=== PATIENT | female | born 1955 | race Hispanic/Latino ===

== ENCOUNTER 2019-01-14 13:13 | Inpatient (IN) | payer MEDICARE ==
[2019-01-14 13:43] LABS: #Eosinphils 0.1 thou/uL (0.0-0.7); #Lymphocytes 1.9 thou/uL (1.20-3.40); #Monocytes 0.4 thou/uL (0.11-0.59); #Neutrophils 4.4 thou/uL (1.40-6.50); %Basophils 0.6 % (0.0-1.0); %Eosinophils 2.1 % (0.0-10.0); %Lymphocytes 27.9 % (21.0-51.0); %Neutrophils 63.3 % (42.0-75.0); Hemoglobin 12.4 g/dL (12.0-16.0); Mean Corpuscular HGB CONC 31.6 g/dL (32.0-36.0); Mean Corpuscular Hemoglobin 30.5 pg (27.0-31.0); Mean Corpuscular Volume 96.4 fL (78.0-98.0); Mean Platelet Volume 9.5 fL (7.4-10.4); Platelet Count 120 thou/uL (130-400); RBC Distribution Width 12.6 % (11.5-14.5); Red Blood Cell (RBC) Count 4.08 mill/uL (4.20-5.40); White Blood Cell (WBC) Count 6.9 thou/uL (4.8-10.8)
[2019-01-14 14:01] LABS: ALT (SGPT) 89 U/L (8-55); AST (SGOT) 65 U/L (5-34); Acetaminophen Less than 6.0 mcg/mL (10.0-30.0); Albumin 3.8 g/dL (3.4-4.8); Alcohol Less than 10 mg/dL (Less than 10); Alkaline Phosphatase 68 U/L (40-150); Anion Gap 13 mmol/L (10-20); BUN (Urea Nitrogen) 17 mg/dL (9.8-20.1); Bilirubin, Total 0.6 mg/dL (0.2-1.2); Calc. Creatinine Clearance 0 mL/min (70-130); Calcium 9.2 mg/dL (7.8-10.44); Carbon Dioxide 26 mmol/L (23-31); Chloride 106 mmol/L (98-107); Estimated GFR-MDRD 81; Glucose 135 mg/dL (80-115); Potassium 3.5 mmol/L (3.5-5.1); Protein, Total 6.8 g/dL (6.0-8.3); Salicylate Less than 8.0 mg/dL (15.0-30.0); Sodium 141 mmol/L (136-145)
[2019-01-14 18:42] LABS: Bilirubin Small (Negative); Blood, Urine Negative (Negative); Clarity CLEAR (Clear); Glucose, Urine (Dipstick) Negative (Negative); Leukocyte Negative (Negative); Nitrite Negative (Negative); Protein, Urine (Dipstick) Trace mg/dL (Neg-Trace); Specific Gravity, Urine 1.029 (1.002-1.036); Urobilinogen 0.2 mg/dL (0.2-1.0); pH, Urine 5.5 (5.0-9.0)
[2019-01-14 18:55] LABS: Amphetamine Not Detected (NotDetected); Barbiturates Screen Not Detected (NotDetected); Benzodiazepine Screen Not Detected (NotDetected); Cocaine Metabolite Screen Not Detected (NotDetected); Medtox Control Line Valid? VALID (VALID); Medtox Reader # READER 1; Methadone Not Detected (NotDetected); Methamphetamine Not Detected (NotDetected); Opiate Screen Not Detected (NotDetected); Oxycodone Screen Not Detected (NotDetected); Phencyclidine (PCP) Not Detected (NotDetected); THC/Cannabinoid Screen Not Detected (NotDetected); Tricyclic Screen Detected (NotDetected)
[2019-01-15 00:07] LABS: Anion Gap 11 mmol/L (10-20); BUN (Urea Nitrogen) 14 mg/dL (9.8-20.1); Calc. Creatinine Clearance 0 mL/min (70-130); Calcium 8.5 mg/dL (7.8-10.44); Carbon Dioxide 25 mmol/L (23-31); Chloride 109 mmol/L (98-107); Estimated GFR-MDRD 85; Glucose 153 mg/dL (80-115); Magnesium 1.9 mg/dL (1.6-2.6); Phosphorus 4.4 mg/dL (2.3-4.7); Potassium 3.5 mmol/L (3.5-5.1); Sodium 141 mmol/L (136-145)
[2019-01-15 00:12] LABS: Troponin I 0.034 ng/mL (< 0.028)
[2019-01-15] MEDS ORDERED: Rocuronium Bromide 10 MG/ML (10ML VIAL) ONE (00:53)
[2019-01-15 01:49] LABS: Analyzer IN Cardio ER; Base Excess (BEa) 0.4 mEq/L (-2.0 to +3.0); CO2 Tension 45.8 mmHg (35.0-45.0); Calcium, Ionized 1.13 mmol/L (1.12-1.30); Carboxyhemoglobin (COHb) 0.6 gm% (0.0-3.0); Hemoglobin (Hb) 12.4 g/dL (12.0-16.0); Potassium - ABG Lab 3.47 mmol/L (3.70-5.30); pH, Arterial 7.37 (7.35-7.45)
[2019-01-15 02:59] VITALS: BMI 44.1
[2019-01-15] MEDS ORDERED: Acetaminophen 650 MG Suppository PR PRN (03:32)
[2019-01-15] MEDS ORDERED: Senokot S 8.6-50 MG TAB PO PRN (03:32)
[2019-01-15] MEDS ORDERED: Ondansetron ODT 4 MG TAB PO PRN (03:32)
[2019-01-15] MEDS ORDERED: Acetaminophen 325 MG TAB PO PRN (03:32)
[2019-01-15] MEDS ORDERED: Ondansetron PF 4 MG/2 ML Vial IVP PRN (03:32)
[2019-01-15] MEDS ORDERED: Dextrose 5% in Water 1,000 ML IV PRN (03:35)
[2019-01-15] MEDS ORDERED: Insulin Regular 300 UNITS/3 ML VIAL SC PRN ×2 (03:35)
[2019-01-15] MEDS ORDERED: Dextrose 50% Abboject 50 ML SYRINGE SLOW IVP PRN (03:35)
[2019-01-15] MEDS ORDERED: SYSTANE 3.5 GM TUBE EA EYE PRN (03:36)
[2019-01-15] MEDS ORDERED: Ventilator Sedation Protocol 1 EACH FS SCH (03:45)
[2019-01-15] MEDS ORDERED: Morphine 2 MG/ML SYRINGE SLOW IVP PRN (03:46)
[2019-01-15] MEDS ORDERED: fentaNYL Citrate/PF 2,000 MCG in Sodium Chloride 0.9% 60 ML IV SCH (03:46)
[2019-01-15] MEDS ORDERED: Propofol BOLUS 1,000 MG/100 ML VIAL IV PRN (03:46)
[2019-01-15] MEDS ORDERED: Propofol 1,000 MG/100 ML VIAL IV PRN (03:46)
[2019-01-15] MEDS ORDERED: Lorazepam 2 MG/ML VIAL SLOW IVP PRN (03:46)
[2019-01-15] MEDS ORDERED: DISCONTINUE PREVIOUS NARCOTIC PAIN MEDICATIONS AND BENZODIAZEPINES FS SCH (03:46)
[2019-01-15] MEDS ORDERED: Fentanyl BOLUS 250 ML IVPB PRN (03:46)
--- NOTE | 2019-01-15 04:42 | HP ---
PRIMARY CARE PHYSICIAN: [facility]. CHIEF COMPLAINT: Drug overdose. HISTORY OF PRESENT ILLNESS: The patient is a 63-year-old female with bipolar disorder, was brought into the emergency room after a drug overdose. The patient apparently took 20 tablets of Seroquel intentionally in a suicidal attempt. Please note that the patient's history was obtained from the ER report. The patient is intubated at this time. The family reported to the emergency room that the patient took 20 tablets of unknown mg of Seroquel this afternoon. The patient was alone at that time. The family were at the [employer] game. The patient called the family after the overdose. The patient has a diagnosis of bipolar disorder. She has been hallucinating recently. In the emergency room, initial vital signs showed temperature 98.1, respirations of 18, pulse rate of 120, with a blood pressure of 122/71, O2 saturation 98% on room air. She was monitored on the telemetry unit in the emergency room. Poison Control was notified. QT interval was monitored in the emergency room. [facility] also evaluated the patient. While in the emergency room, the patient became more altered and later on unresponsive requiring mechanical intubation. She received IV fluids with rocuronium in the emergency room. The patient has a history of suicidal attempts in the past, requiring psychiatry admission in 2007. PAST MEDICAL HISTORY: 1. Bipolar disorder. 2. Diabetes mellitus type 2. 3. Hypertension. 4. Morbid obesity with a BMI of 44.1. PAST SURGICAL HISTORY: 1. Hysterectomy. 2. Thyroid tumor removal. ALLERGIES: NO KNOWN DRUG ALLERGIES. HOME MEDICATIONS: Cannot be obtained from the patient. Per ER list, the patient is on; 1. Metformin. 2. Seroquel. 3. Lovastatin. 4. Naproxen. 5. Aspirin. 6. Glipizide. SOCIAL HISTORY: The patient currently lives at home with her family. No current use of tobacco, alcohol, or drug use. The patient is a full code. We will verify DPOA with the family when they arrive. FAMILY HISTORY: Cannot be obtained from the patient due to current cognitive status. REVIEW OF SYSTEMS: Cannot be obtained from the patient due to current cognitive status. PHYSICAL EXAMINATION: VITAL SIGNS: As discussed above. GENERAL: A 63-year-old female, intubated and mechanically ventilated. HEENT: Head, atraumatic and normocephalic. Pupils 3 to 4 mm with good response to light. Endotracheal tube noted. NECK: Supple. No JVD. No neck stiffness. LUNGS: Lungs were symmetrical. Scattered rhonchi. No wheezing or rales. HEART: S1 and S2 present. Tachycardic. No rubs or gallops. ABDOMEN: Soft. No guarding, or rigidity. Bowel sounds present. EXTREMITIES: No edema or calf tenderness. NEUROLOGIC: The patient is not responding to painful stimuli. Pupils were reacting as discussed above. Detailed neurological examination could not be done due to current cognitive status. PSYCHIATRIC: As discussed above. LYMPH NODES: No palpable lymph nodes in the neck. PERIPHERAL VASCULAR: Radial pulses palpable bilaterally. MUSCULOSKELETAL: No joint swelling or tenderness. LABORATORY FINDINGS: WBC 6.9, hemoglobin 12.4, hematocrit 39.3, platelet count 120. Chemistry showed sodium 141, potassium 3.5, chloride 106, bicarb 26, BUN 17, creatinine 0.72. AST 65, ALT 89. Troponin 0.034. TSH 0.08. Urinalysis was negative for WBC bacteria. Urine drug screen positive for tricyclics, acetaminophen, salicylate and alcohol level was negative. Chest x-ray by my review showed increased bronchopulmonary markings at the right base. EKG by my review showed sinus rhythm with QTc of 503 on ER arrival. Repeat EKG showed QTc interval of 522 milliseconds. IMPRESSION: 1. Toxic metabolic encephalopathy secondary to Seroquel overdose. 2. Diabetes mellitus type 2. 3. Hypertension. 4. Hyperlipidemia. 5. Bipolar disorder. 6. History of suicidal attempt with Psychiatry admission in the past. 7. Thrombocytopenia, unclear if chronic. 8. Abnormal liver function tests, probably chronic. 9. Chronic kidney disease, stage 2. 10. Morbid obesity with a BMI of 44.1. PLAN: The patient will be monitored in the intensive care unit. We will continue supportive care with IV fluids. Insulin sliding scale. Accu-Chek q.6 hourly. Monitor QT interval. Consult Pulmonary, Dr. Gomez. Ventilation sedation protocol. GI prophylaxis. SCDs for DVT prophylaxis. Job ID: [id number]
[2019-01-15] MEDS: D5 1/2 NS w/20 mEq KCL 1,000 ML IV SCH ×3 (04:53→20:50)
[2019-01-15 04:57] LABS: Puncture Site RRA
[2019-01-15 07:05] LABS: Actual Bicarbonate (HCO3a) 21.5 mEq/L (22-28); Base Excess (BEa) -1.9 mEq/L (-2.0 to +3.0); CO2 Tension 32.4 mmHg (35.0-45.0); Calcium, Ionized 1.17 mmol/L (1.12-1.30); Carboxyhemoglobin (COHb) 0.8 gm% (0.0-3.0); Hemoglobin (Hb) 12.2 g/dL (12.0-16.0); Potassium - ABG Lab 3.59 mmol/L (3.70-5.30); pH, Arterial 7.44 (7.35-7.45)
[2019-01-15 07:06] LABS: Puncture Site RRA
--- NOTE | 2019-01-15 07:49 | RAD ---
FRONTAL VIEW ABDOMEN: INDICATIONS: Evaluation of enteric catheter placement. FINDINGS: There is a radiopaque catheter, which traverses the left abdomen, below the field of view, with the d istal aspect not discerned on this exam. Patchy densities are seen at the lung base. There is a [place] of bowel gas. Extrinsic artifacts limit detail. IMPRESSION: Catheter traverses the left abdomen, below the field of view. POS: [place]
[2019-01-15] MEDS: Famotidine/PF 20 mg/2ml Vial SLOW IVP SCH ×2 (08:22→20:50)
[2019-01-15] MEDS: Famotidine 20 MG TAB PO SCH ×2 (08:23→20:49)
--- NOTE | 2019-01-15 09:03 | CON ---
DATE OF CONSULTATION: 01/15/2019 REASON FOR CONSULTATION: Acute respiratory failure requiring mechanical ventilation. The following encompassed 45 minutes of critical care time. HISTORY OF PRESENT ILLNESS: This is a 63-year-old female, who took an overdose of Seroquel approximately 20 tablets. She was intubated in the emergency room and sent on mechanical ventilation overnight. The events leading to the overdose are outlined in history and physical. PAST MEDICAL HISTORY: 1. Bipolar disorder. 2. Diabetes mellitus type 2. 3. Hypertension. 4. Obesity. PAST SURGICAL HISTORY: 1. Hysterectomy. 2. Thyroid tumor removal. ALLERGIES: NONE. HOME MEDICATIONS: Metformin, Seroquel, lovastatin, naproxen, aspirin, and glipizide. SOCIAL HISTORY: The patient does not smoke. Does not consume alcohol. Does not use illicit drugs. FAMILY MEDICAL HISTORY: Unremarkable. REVIEW OF SYSTEMS: Cannot be obtained as the patient is currently intubated. PHYSICAL EXAMINATION: VITAL SIGNS: Pulse 86, blood pressure 146/58, O2 saturation 100%, respiratory rate 18, temperature 97.7. GENERAL: The patient was sedated on propofol when I arrived. We turned it off. She was able to follow commands and move her extremities, squeezing her hands and she is looking around the room. HEENT: Pupils reactive. Sclerae anicteric. Oropharynx clear. NECK: No adenopathy or JVD. LUNGS: Clear without wheezing or rhonchi. CARDIAC: S1-S2 regular without audible murmur. ABDOMEN: Soft, nontender, has an old scar. EXTREMITIES: No clubbing, cyanosis, or edema. She has bilateral knee scars. LABORATORY DATA: PH of 7.44, pCO2 of 32, pO2 of 91, SIMV rate 22, tidal volume 450, PEEP 5, pressure 10, and FiO2 of 40%. White blood cell count 6.9, hematocrit 39, and platelet count 120. Sodium 141, potassium 3.5, chloride 109, CO2 25, BUN 14, creatinine 0.7, glucose 153. IMAGING DATA: A chest film showed possible right middle lobe changes. ET tube was in good position. ASSESSMENT: 1. Seroquel overdose. 2. Acute respiratory failure requiring mechanical ventilation. 3. Diabetes mellitus type 2. 4. Bipolar disorder. PLAN: We will hold her sedation and hopefully extubate her if she wakes up more than what we see right now. I do not anticipate any respiratory issues. Once she is extubated, then we can begin the process of [facility] referral. I have reviewed the orders. She is receiving GI prophylaxis with Pepcid and at this point, no DVT prophylaxis. I will go ahead and start enoxaparin. Job ID: [id number]
--- NOTE | 2019-01-15 09:25 | RAD ---
EXAM: CHEST ONE VIEW HISTORY: RSI COMPARISON: None FINDINGS: Endotracheal tube is noted in place with the tip overlying the T5 vertebral body and above the level of the vini. The cardiac silhouette is magnified by projection and depth of inspiration. Pulmonary vasculature is at the upper limits of normal. Increased density is seen at the right lung b ase and to a lesser degree at the medial left lung base likely attributable to atelectasis. No definite pleural effusion is appreciated. There is hilar prominence bilaterally, but this is likely r elated to the shallow depth of inspiration which accentuates the hilar structures. Degenerative changes are seen in the spine. There is suggestion of prominence of the medial aspect head of the six th rib. This could be related to superimposition of structures, but a remote fracture is not entirely excluded. IMPRESSION: 1. Patchy densities right lung base and to a lesser extent left lung base probably attributable to at electasis and secondary to depth of inspiration. Follow-up evaluation suggested. 2. Endotracheal tube noted in place.
[2019-01-15] MEDS: Enoxaparin Sodium 40 MG/0.4 ML SYRINGE SC SCH (12:41)
--- NOTE | 2019-01-15 15:10 | PDOC.EVN ---
Event Note - Event Note Event Note: Pt seen and examined. Chart reviewed. Care discussed w RN at bedside. no family in room Pt intubated but off of propofol & opens eyes on command but falls back asleep quickly Cont supportive care. [facility] when extubated and stable. lives OOT am labs tele monitoring
[2019-01-15] MEDS: Acetaminophen 650 MG/20.3 ML UDCUP PO PRN (16:56)
[2019-01-15] MEDS ORDERED: Lisinopril 10 MG TAB PO SCH (18:00)
[2019-01-16] MEDS: D5 1/2 NS w/20 mEq KCL 1,000 ML IV SCH (04:00)
[2019-01-16] MEDS: Acetaminophen 650 MG/20.3 ML UDCUP PO PRN (05:28)
[2019-01-16 06:40] LABS: #Eosinphils 0.2 thou/uL (0.0-0.7); #Lymphocytes 1.5 thou/uL (1.20-3.40); #Monocytes 0.7 thou/uL (0.11-0.59); #Neutrophils 6.9 thou/uL (1.40-6.50); %Basophils 0.4 % (0.0-1.0); %Eosinophils 2.5 % (0.0-10.0); %Lymphocytes 16.2 % (21.0-51.0); %Neutrophils 73.9 % (42.0-75.0); Hemoglobin 11.8 g/dL (12.0-16.0); Mean Corpuscular HGB CONC 32.2 g/dL (32.0-36.0); Mean Corpuscular Hemoglobin 31.4 pg (27.0-31.0); Mean Corpuscular Volume 97.5 fL (78.0-98.0); Mean Platelet Volume 9.8 fL (7.4-10.4); Platelet Count 121 thou/uL (130-400); RBC Distribution Width 12.8 % (11.5-14.5); Red Blood Cell (RBC) Count 3.75 mill/uL (4.20-5.40); White Blood Cell (WBC) Count 9.3 thou/uL (4.8-10.8)
[2019-01-16 06:56] LABS: ALT (SGPT) 77 U/L (8-55); AST (SGOT) 59 U/L (5-34); Albumin 3.5 g/dL (3.4-4.8); Alkaline Phosphatase 72 U/L (40-150); Anion Gap 8 mmol/L (10-20); BUN (Urea Nitrogen) 5 mg/dL (9.8-20.1); Bilirubin, Total 0.7 mg/dL (0.2-1.2); Calc. Creatinine Clearance 146 mL/min (70-130); Calcium 8.5 mg/dL (7.8-10.44); Carbon Dioxide 28 mmol/L (23-31); Chloride 109 mmol/L (98-107); Estimated GFR-MDRD 83; Globulin 2.9 g/dL (2.4-3.5); Glucose 139 mg/dL (80-115); Magnesium 2.1 mg/dL (1.6-2.6); Potassium 3.9 mmol/L (3.5-5.1); Protein, Total 6.4 g/dL (6.0-8.3); Sodium 141 mmol/L (136-145)
[2019-01-16] MEDS: Famotidine 20 MG TAB PO SCH (08:10)
[2019-01-16] MEDS: Enoxaparin Sodium 40 MG/0.4 ML SYRINGE SC SCH (08:12)
[2019-01-16] MEDS: Famotidine/PF 20 mg/2ml Vial SLOW IVP SCH (08:19)
[2019-01-16] MEDS ORDERED: Levothyroxine Sodium 100 MCG TAB PO SCH (08:30)
[2019-01-16] MEDS ORDERED: Fish Oil 1,000 MG CAP PO SCH (09:00)
[2019-01-16] MEDS ORDERED: Non-Formulary Item 1 EACH (Omega-3 Fatty Acids/Fish Oil [Omega 3 1,000 Mg Softgel] 1 CAP) PO SCH (09:00)
[2019-01-16] MEDS ORDERED: Lisinopril 10 MG TAB PO SCH ×2 (09:00)
[2019-01-16] MEDS ORDERED: Non-Formulary Item 1 EACH (Nitrofurantoin Macrocrystal [Nitrofurantoin] 100 MG) PO SCH (09:00)
[2019-01-16] MEDS ORDERED: Non-Formulary Item 1 EACH (Levothyroxine Sodium [Levothyroxine Sodium] 200 MCG) PO SCH (09:00)
[2019-01-16] MEDS ORDERED: Fluconazole 100 MG TAB PO SCH (09:00)
[2019-01-16] MEDS ORDERED: Nitrofurantoin Monohyd/M-Cryst 100 MG CAP PO SCH (09:00)
[2019-01-16 11:59] VITALS: BP 156/85; TEMP 100
[2019-01-16] MEDS ORDERED: Simvastatin 5 MG TAB PO SCH (17:00)
[2019-01-16] MEDS ORDERED: Non-Formulary Item 1 EACH (Lovastatin [Lovastatin] 10 MG) PO SCH (17:00)
--- NOTE | 2019-01-16 17:35 | DIS ---
DATE OF ADMISSION: 01/15/2019 DATE OF DISCHARGE: 01/16/2019 CONDITION AT THE TIME OF DISCHARGE: Stable and improved. DISCHARGE DISPOSITION: Home with outpatient followup with her psychiatrist, Dr. Ferrell in [facility]. PRIMARY CARE PHYSICIAN: Out of town. DISCHARGE DIAGNOSES: 1. Toxic metabolic encephalopathy secondary to Seroquel overdose. 2. Seroquel overdose. 3. Suicidal attempt. 4. History of suicidal attempt and ideation in the past. 5. Diabetes mellitus type 2. 6. Hypertension. 7. Bipolar disorder. DISCHARGE MEDICATIONS: The patient will resume home medications as dictated by Dr. Davalos in his H and P dated on 01/15/2019. The patient is instructed not to take her Seroquel and Zoloft until seen by her own psychiatrist. PROCEDURES DONE IN HOSPITAL: 1. Chest x-ray upon presentation, which showed atelectasis. 2. Abdominal x-ray after placement of her Dobbhoff tube. INHOUSE CONSULTATION: Critical Care Medicine, Dr. Gomez. HISTORY OF PRESENTING ILLNESS: Ms. Mays is a 63-year-old female, who was visiting her family locally for [place] celebration, had a fight with her and took excessive doses of Seroquel tablets. She took 20 mg 20 tablets of Seroquel and was brought to the emergency room after she called her family and told them about it. She was found to have somnolence upon presentation, but she was hemodynamically stable. [facility] was consulted in the emergency room, but the patient became more altered and later unresponsive requiring mechanical intubation. She was started on IV fluids and was admitted to Medicine Service in the ICU for further management. Her QTc interval was 503, which worsened to 522 milliseconds later on. Please see admission history and physical dictated by Dr. Davalos for further details. HOSPITAL COURSE: The patient's urine drug screen was positive for tricyclic. Urinalysis was negative for WBCs or bacteria. Chest x-ray was unremarkable. She was seen by Pulmonary and Critical Care Medicine while in the ICU. She was quickly extubated and tolerated it very well. She was transitioned to medical floor. As of this morning, she is awake, alert, and oriented x3, and is ready to sign out AMA. I discussed her care with her and she understood that she needs to follow up with her psychiatrist in the outpatient setting. Currently, she has no more suicidal ideation or attempt. She was evaluated by [facility] again and they have cleared her for discharge with close followup with a psychiatrist. I have seen and examined this morning. She has been having some low-grade fever at 100, which is most likely secondary to atelectasis. She denies any diarrhea, nausea, vomiting, dysuria, frequency, urgency, chest pain, shortness of breath, or cough. She feels fine. She has no leukocytosis. No indication for antibiotics at this time. PHYSICAL EXAMINATION: VITAL SIGNS: Heart rate is 87 and blood pressure 156/85. GENERAL: No acute distress. Awake, alert, and oriented x3. CHEST: Clear to auscultation bilaterally. HEART: Rhythm is regular. ABDOMEN: Soft, nontender, nondistended. EXTREMITIES: Free of any cyanosis, clubbing, or edema. DISCHARGE PLAN: Discharge plan was discussed with the patient. Her will pick her up and she will go and live with her sister in [place] for a little bit until they resolve the issues among themselves. At this time, she is hemodynamically stable as well as has been cleared from [facility] for discharge. She will follow up with the PCP as well in [facility]. Job ID: [id number]
[2019-01-17] MEDS ORDERED: Levothyroxine Sodium 100 MCG TAB PO SCH (06:00)
[2019-01-17] MEDS ORDERED: glipiZIDE 5 MG TAB PO SCH (07:30)
== END 2019-01-16 14:33 | disposition home or self-care (01) | DRG 917 ==
LOC: ERS 13:13 → CCU 01-15 02:13 → T4-A 01-15 19:50
PROVIDERS: ADMIT Internal Medicine; ATTEND Internal Medicine
PROC: 5A1935Z Respiratory Ventilation, Less than 24 Consecutive Hours (ICD-10-PCS; principal; 2019-01-15)
PROC: 0BH17EZ Insertion of Endotracheal Airway into Trachea, Via Natural or Artificial Opening (ICD-10-PCS; 2019-01-15)
DX: T43.592A Poisoning by other antipsychotics and neuroleptics, intentional self-harm, initial encounter (principal); G92 Toxic encephalopathy; J96.00 Acute respiratory failure, unspecified whether with hypoxia or hypercapnia; Z68.41 Body mass index [BMI] 40.0-44.9, adult; Z63.0 Problems in relationship with spouse or partner; F31.9 Bipolar disorder, unspecified; E66.01 Morbid (severe) obesity due to excess calories
CPT/HCPCS: 36415; 36416; 71045; 74018; 80053; 80306; 80307; 81003; 82805; 83735; 84100; 84443; 84484; 85025; 93005; 93010; 94002; 94003; J1650; J1815; J2704; S0028